=== PATIENT | female | born 1955 | race Caucasian/White ===

== ENCOUNTER 2017-01-13 20:35 | Emergency (ER) | payer OTHER ==
[~2017-01-13] VITALS: Ht 175.3 cm; Wt 77.0 kg
[~2017-01-13 20:35] MED LIST: ESTR1TAB15 PO; LOSA50TA37 PO; METO-272 PO; NAPR220C16 PO; PROG100C6 PO
[2017-01-13 20:42] VITALS: BP 186/91; RESP 18; O2SAT 98
--- NOTE | 2017-01-13 21:02 | ED.REPORT ---
HPI-General Illness Date of Service Jan 13, 2017 ED Provider: Billie George MD The pt is a 61 y/o female w/ a hx of HTN and diabetes presenting to the ED complaining of a sensation of a lump in her throat which began after she woke up this morning. She describes it as "a fold of skin" being care home across her throat which causes slight difficulty swallowing. The pt had a strep test done at urgent care and was told it was negative. She reports eating a lot of salmon and suspects a piece of bone may be stick in her throat. Denies throat pain, cough, or SOB. The pt also has been experiencing regular PVCs which began a month ago, and her BP being 115/75 the last time she checked. Nursing Notes Stated Complaint: DIFFICULTY SWALLOWING Chief Complaint: ENT & Mouth Nursing Notes Reviewed: Yes Allergies: Coded Allergies: TAPE (Verified Allergy, Severe, RASH (PAPER OK), 07/05/11) lisinopril (Verified Allergy, Intermediate, SEVERE COUGHING, 10/04/14) acetaminophen (Verified Allergy, Unknown, 07/06/11) aspirin (Verified Adverse Reaction, Intermediate, RINGING IN EARS, ) tramadol (Verified Adverse Reaction, Intermediate, HEART RACING, 07/06/11) Uncoded Allergies: BEE STINGS (Allergy, Severe, FEVER/SWELLING, 07/05/11) Scheduled Estrogens Conj/Medroxyprog 0.3-1.5 mg (Prempro 0.3-1.5 mg) 1 Each Tablet 1 EACH PO DAILY Losartan Potassium (Losartan Potassium) 50 Mg Tablet 50 MG PO BID Metoprolol Succinate ER (Metoprolol Succinate ER) 50 Mg Tab.er.24h 50 MG PO DAILY Progesterone,Micronized (Progesterone) 100 Mg Capsule 100 MG PO DAILY Scheduled PRN Naproxen Sodium (Naproxen Sodium) 220 Mg Capsule 220 MG PO TID PRN PRN For Pain General Time Seen by MD: 21:01 Chief Complaint Other (Lump in throat ) Hx Obtained From: Patient Arrived By: Walk-in Sudden in Onset?: Yes Onset Occurred: 9 - 12 hours ago Symptom Duration: Since onset Recent Healthcare: No recent doctor visit, No recent hospitalization Similar Sx Previous: No Past Medical History Past Medical History diabetes chronic cough frequent sinus infections PVCs HTN Reports: Hypertension Past Surgical History breast lumpectomy breast reduction Reports: Tonsillectomy Smoking History Unknown if Ever Smoker Social History Other Social History: Good social support, Local resident Ambulatory Status Independent Review of Systems Full Review of Systems Ears / Nose / Throat: Denies: Throat pain Respiratory: Denies: Non-productive cough, Shortness of breath GI: Reports: Dysphagia Complete sys rev & neg: except as marked. Physical Exam Vital Signs Vital Signs Date Time Temp Pulse Resp B/P Pulse Ox O2 Delivery O2 Flow Rate FiO2 01/13/17 22:16 36.4 71 16 144/90 97 Room Air 01/13/17 20:42 36.3 72 18 186/91 98 Room Air Initial VS: Reviewed General/Constitutional: Awake, Alert Head / Eyes: Atraumatic, Normocephalic ENT: Airway patent, Mucous membranes moist Base of mouth and tongue normal No adenopathy No obvious edema Able to swallow water and applesauce w/ slightly more work to swallow the applesauce. Neck: Atraumatic, Supple, Full range of motion Respiratory / Chest: Atraumatic, Breath sounds NL, Breath sounds = bilat, No respiratory distress, No rales, No rhonchi, No wheezing Cardiovascular: Heart rate NL Heart Sounds / Murmur: Positive: Murmur present... (III/) Lower Ext Edema: Positive: Bilateral 1+ (w/ chronic venous stasis changes ) Occasional missed beats Abdomen: Atraumatic, Soft, Non-tender Back: Atraumatic, Full range of motion Skin: Atraumatic, Color NL, No rash, Warm, Dry Neurologic: Oriented X3, Speech NL Psychiatric: Affect NL, Mood NL Re-Eval/Medical Decision Med Decision/Clinical Course No evidence of infection mass foreign body or nerve injury. No history of reflux. Most likely this is a presentation of globus sensation. She is given information from up-to-date regarding this. We will ask her to return if there is increasing difficulties Source of Hx: Old records Counseled Regarding: Diagnosis, Need for follow-up, When/why to return to ED Discharge & Departure Primary Impression: Dysphagia Dysphagia type: unspecified Qualified Code: R13.10 - Dysphagia, unspecified Additional Impression: Globus pharyngeus Disposition: Home Discharge Condition All VS Reviewed: Yes Condition: Stable Additional Instructions: Thank you for entrusting us with your care today. I'm not entirely sure what is causing your swallowing abnormality. You did seem to improve somewhat with steroid, suggesting this is an allergy type reaction. I don't see anything to suggest stroke or a foreign body in your throat. I have given you some information on Globus Sensation (the sensation that there is something stuck in your throat). This may end up being the correct diagnosis for you If you have more difficulty swallowing please come back to the ED. I hope your condition improves. Referrals: Sarah Roblero DO (PCP) Scribe Attestation Portions of this note were transcribed by David Angulo. I, Dr. George personally performed the history, physical exam and medical decision-making; I reviewed and confirmed the accuracy of the information in the transcribed note. Signed by : Heather Holbrook, 01/13/17 and 1139. copies to: Sarah Roblero Shawna L MD Jan 13, 2017 21:02 David Angulo Jan 13, 2017 21:29
[2017-01-13] MEDS ORDERED: MethylprednisoLONE Sodium Succinate 62.5 mg/mL 2 mL Inj IVPUSH ONE (21:20)
[2017-01-13 22:16] VITALS: BP 144/90; PULSE 71; RESP 16; O2SAT 97
== END 2017-01-13 22:20 | disposition home or self-care (01) ==
LOC: SED 20:35
DX: R13.10 Dysphagia, unspecified (principal); F45.8 Other somatoform disorders; I10 Essential (primary) hypertension; E11.9 Type 2 diabetes mellitus without complications; Z88.5 Allergy status to narcotic agent; Z88.8 Allergy status to other drugs, medicaments and biological substances; Z91.048 Other nonmedicinal substance allergy status; Z88.6 Allergy status to analgesic agent
CPT/HCPCS: 96374; 99284; J2930